=== PATIENT | female | born 1950 | race American Indian/Alaskan Native ===

== ENCOUNTER 2018-01-06 11:06 | Emergency (ER) | payer MEDICARE ==
[2018-01-06 11:22] VITALS: BP 147/74
[2018-01-06] MEDS ORDERED: ANTIVERT PO ONE (11:46)
[2018-01-06] MEDS ORDERED: ZOFRAN ODT PO ONE (11:47)
--- NOTE | 2018-01-06 11:51 | Emergency Department Report ---
ED Dizziness HPI - General Chief Complaint: Dizziness Stated Complaint: (L) SHOULDER PAIN/NV Time Seen by Provider: 01/06/18 11:30 Source: patient Mode of arrival: Stretcher Limitations: No Limitations - History of Present Illness Initial Comments: Patient is 67 years old female with history of hypertension. Patient presented to the ER complaining of dizziness that started around 2:00 this morning patient stated that she feels the room spinning. This is getting more dose when she changed her position especially her head.Patient stated that she is nauseated also but no vomiting. Patient denied any headache, weakness numbness or tingling sensation. No bowel or bladder incontinence. No recent head injury. MD Complaint: dizziness, lightheadedness Timing: sudden onset Description: sense of movement, "room spinning", lightheadedness History of Same: No Severity: moderate Improves With: remaining still Worsens With: movement, position Associated Symptoms: denies other symptoms - Related Data Allergies Allergy/AdvReac Type Severity Reaction Status Date / Time No Known Allergies Allergy Unverified 01/06/18 11:17 ED Review of Systems ROS: Stated complaint: (L) SHOULDER PAIN/NV Other details as noted in HPI Comment: All other systems reviewed and negative Constitutional: denies: chills, fever Eyes: denies: eye pain Cardiovascular: denies: chest pain, palpitations Gastrointestinal: nausea. denies: abdominal pain, vomiting, diarrhea, constipation, hematemesis, hematochezia Genitourinary: denies: urgency, dysuria, frequency, hematuria, discharge Skin: denies: lesions Neurological: vertigo. denies: headache, weakness, numbness, paresthesias, confusion, abnormal gait ED Past Medical Hx - Past Medical History Hx Hypertension: Yes - Surgical History Past Surgical History?: Yes Hx Cholecystectomy: Yes Additional Surgical History: hysterectomy, neck - Social History Smoking Status: Never Smoker Substance Use Type: None ED Physical Exam - General Limitations: No Limitations General appearance: alert, in no apparent distress - Head Head exam: Present: atraumatic, normocephalic, normal inspection - Eye Eye exam: Present: normal appearance - ENT ENT exam: Present: normal exam, normal orophraynx, mucous membranes moist, normal external ear exam - Neck Neck exam: Present: normal inspection, full ROM. Absent: tenderness - Respiratory Respiratory exam: Present: normal lung sounds bilaterally. Absent: respiratory distress, wheezes, rales, rhonchi, chest wall tenderness, accessory muscle use, decreased breath sounds, prolonged expiratory - Cardiovascular Cardiovascular Exam: Present: regular rate, normal rhythm, normal heart sounds - GI/Abdominal GI/Abdominal exam: Present: soft, normal bowel sounds. Absent: distended, tenderness, guarding, rebound, rigid, hypoactive bowel sounds, organomegaly, mass, pulsatile mass - Extremities Exam Extremities exam: Present: normal inspection, full ROM, normal capillary refill - Back Exam Back exam: Present: normal inspection, full ROM. Absent: tenderness, CVA tenderness (R), CVA tenderness (L), muscle spasm, paraspinal tenderness, vertebral tenderness, rash noted - Neurological Exam Neurological exam: Present: alert, oriented X3, CN II-XII intact, normal gait, reflexes normal - Skin Skin exam: Present: warm, intact, normal color ED Course Vital Signs 01/06/18 11:17 Temperature 97.8 F Pulse Rate 59 L Respiratory 17 Rate Blood Pressure 147/74 O2 Sat by Pulse 98 Oximetry ED Medical Decision Making - Lab Data Result diagrams: 01/06/18 12:26 01/06/18 12:26 - EKG Data -: EKG Interpreted by [facility] EKG shows normal: sinus rhythm Rate: normal - EKG Data Interpretation: no acute changes - Radiology Data Radiology results: report reviewed Referring Physician: KALIE FORRESTER Patient Name: NIMISHA ZAPATA Date of : 1950 Sex: Female Report Date: 2018-01-06 Report Status: Final[place] [address] Cat Scan Report Signed Patient: NIMISHA ZAPATA MR#: [id number] : 1950 Acct:[id number] Age/Sex: 67 / F ADM Date: 01/06/18 Loc: ED Attending Dr: Ordering Physician: KALIE FORRESTER Date of Service: 01/06/18 Procedure(s): CT head/brain wo con Accession Number(s): [id number] cc: KALIE FORRESTER FINAL REPORT EXAM: CT HEAD/BRAIN WO CON HISTORY: Lightheadedness/Dizziness TECHNIQUE: Axial noncontrast CT images of the brain were performed. Total exam DLP 805.42 mGy-cm Comparison: None FINDINGS: Mild cortical atrophy. Normal melissa-white differentiation without midline shift or mass effect. No acute extra-axial fluid collections or intraparenchymal blood products. Ventricles and cisterns have normal size and configuration. Conjugate gaze. Orbital cones and apices are unremarkable. Posterior fossa is unremarkable. Clear imaged paranasal sinuses. Right basal ganglia calcification. IMPRESSION: No acute transcortical infarct, bleed, or mass identified. If symptoms persist and there are no contraindications, recommend MRI brain with diffusion-weighted imaging. Transcribed By: JAC Dictated By: CIERRA GILLESPIE Electronically Authenticated By: CIERRA GILLESPIE Signed Date/Time: 01/06/181246 DD/ 46 TD/TT: 01/06/181246 - Medical Decision Making Patient stated that she is feeling much better. No nausea or vomiting. Vertigo is resolved. Critical care attestation.: If time is entered above; I have spent that time in minutes in the direct care of this critically ill patient, excluding procedure time. ED Disposition Clinical Impression: Dizziness Disposition: DC-01 TO HOME OR SELFCARE Is pt being admited?: No Condition: Stable Instructions: Vertigo (ED), Dizziness (ED) Referrals: PRIMARY CARE,MD [Primary Care Provider] - 3-5 Days
--- NOTE | 2018-01-06 12:52 | Cat Scan Report ---
FINAL REPORT EXAM: CT HEAD/BRAIN WO CON HISTORY: Lightheadedness/Dizziness TECHNIQUE: Axial noncontrast CT images of the brain were performed. Total exam DLP 805.42 mGy-cm Comparison: None FINDINGS: Mild cortical atrophy. Normal melissa-white differentiation without midline shift or mass effect. No acute extra-axial fluid collections or intraparenchymal blood products. Ventricles and cisterns have normal size and configuration. Conjugate gaze. Orbital cones and apices are unremarkable. Posterior fossa is unremarkable. Clear imaged paranasal sinuses. Right basal ganglia calcification. IMPRESSION: No acute transcortical infarct, bleed, or mass identified. If symptoms persist and there are no contraindications, recommend MRI brain with diffusion-weighted imaging.
[2018-01-06 12:55] LABS: BUN/Creatinine Ratio 14; Blood Urea Nitrogen 10 mg/dL (7-17); Calcium 8.5 mg/dL (8.4-10.2); Hemolysis Index 1
[2018-01-06 13:12] LABS: Basophils % (Auto) 0.3 % (0.0-1.8); Eosinophils # (Auto) 0.1 K/mm3 (0.0-0.4); Eosinophils % (Auto) 1.7 % (0.0-4.3); Hematocrit 34.8 % (30.3-42.9); Hemoglobin 11.6 gm/dl (10.1-14.3); Lymphocytes # (Auto) 1.8 K/mm3 (1.2-5.4); Lymphocytes % (Auto) 34.3 % (13.4-35.0); Mean Corpuscular HGB Conc 33 % (30-34); Mean Corpuscular Hemoglobin 29 pg (28-32); Mean Corpuscular Volume 86 fl (79-97); Monocytes # (Auto) 0.4 K/mm3 (0.0-0.8); Monocytes % (Auto) 6.7 % (0.0-7.3); Platelet Count 236 K/mm3 (140-440); Red Blood Count 4.05 M/mm3 (3.65-5.03); Red Cell Distribution Width 17.7 % (13.2-15.2)
[2018-01-06] MEDS ORDERED: VALIUM PO ONE (13:29)
== END 2018-01-06 15:22 | disposition home or self-care (01) ==
LOC: ED 11:06
DX: R42 Dizziness and giddiness (principal); R11.0 Nausea; I10 Essential (primary) hypertension; Z90.49 Acquired absence of other specified parts of digestive tract; Z90.710 Acquired absence of both cervix and uterus
CPT/HCPCS: 36415; 70450; 80048; 84484; 85025; 93005; 93010; Q0162